=== PATIENT | female | born 1985 | race American Indian/Alaskan Native ===

== ENCOUNTER 2017-12-16 22:13 | Inpatient (IN) ==
[2017-12-20 17:53] VITALS: BP 137/84
== END 2017-12-20 22:31 | disposition home or self-care (01) | DRG 682 ==
LOC: SUATTDRO 23:29 → INTOOBSV 23:29 → N.CC 23:29 → N.5E 12-17 14:44
PROVIDERS: ADMIT Emergency Medicine; ATTEND Internal Medicine

== ENCOUNTER 2021-03-23 17:45 | Observation (INO) ==
[2021-03-23 21:16] LABS: Basophils % 0.4 % (0.0-0.8); Eosinophils # 0.3 10*3/uL (0.0-0.87); Eosinophils % 3.7 % (0.00-10.9); Hematocrit 21.3 VOL% (35.7-47.0); Immature Granulocytes % 0.7 %; Immature Granulocytes Absolute 0.05 #; Lymphocytes # 1.8 10*3/uL (1.4-4.0); Lymphocytes % 25.3 % (21.3-54.2); Mean Corpuscular HGB Conc 32.9 GM/DL (32-36); Mean Corpuscular Volume 96.8 FL (87-102); Mean Platelet Volume 9.3 FL (9.6-12.0); Neutrophils % 61.9 % (38.7-73.9); Platelet Count 195 T/CUMM (130-400); Red Cell Distribution Width 13.9 % (9.3-17.3)
[2021-03-23 21:33] LABS: Alanine Aminotransferase 31 U/L (13-56); Albumin 3.7 G/DL (3.4-5.0); Alkaline Phosphatase 70 U/L (45-117); Aspartate Amino Transferase 17 U/L (0-37); Bilirubin,Total < 0.39 MG/DL (0.20-1.00); Blood Urea Nitrogen 76 MG/DL (7-18); Calcium 8.5 MG/DL (8.5-10.1); Carbon Dioxide 24 MMOL/L (21-32); Estimated Glom Filtration Rate 4 ML/MIN; Glucose 90 MG/DL (74-106); Osmolality,Calculated 301.4 MOS/KG (273-304); Potassium 4.7 MMOL/L (3.5-5.1); Sodium 140 MMOL/L (136-145); Total Protein 7.3 G/DL (6.4-8.2)
[2021-03-23 21:36] LABS: PT Patient Result 10.9 SECS (10.5-12.0); Partial Thromboplastin Time 27.8 SECS (23.8-32.1)
[2021-03-23] MEDS ORDERED: SODIUM CHLORIDE 0.9% 1,000 ML IV PRN (22:29)
[2021-03-23] MEDS ORDERED: ZALEPLON 5 MG CAPSULE PO PRN (22:31)
[2021-03-23] MEDS ORDERED: NICOTINE 21 MG/24 HR PATCH TRANSDERM PRN (22:31)
[2021-03-23] MEDS ORDERED: ONDANSETRON 4 MG/2 ML VIAL IV PRN (22:31)
[2021-03-23] MEDS ORDERED: GLUCAGON 1 MG VIAL IM PRN ×2 (22:31→22:47)
[2021-03-23] MEDS ORDERED: ACETAMINOPHEN 325 MG TABLET PO PRN (22:31)
[2021-03-23] MEDS ORDERED: hydrALAZINE 20 MG/1 ML VIAL IV PRN (22:31)
[2021-03-23] MEDS ORDERED: DEXTROSE 50% 25 GM/50 ML SYRINGE IV PRN (22:31)
[2021-03-23] MEDS ORDERED: DOCUSATE SODIUM 100 MG CAPSULE PO PRN (22:31)
[2021-03-23] MEDS ORDERED: guaiFENesin/DM ER 600-30 MG TABLET PO PRN (22:31)
[2021-03-23] MEDS ORDERED: diphenhydrAMINE CAP 25 MG CAPSULE PO PRN (22:31)
[2021-03-23] MEDS ORDERED: DEXTROSE 50% 25 GM/50 ML VIAL IV PRN (22:47)
[2021-03-23] MEDS ORDERED: amLODIPine 5 MG TABLET PO STA (22:48)
[2021-03-23] MEDS: INSULIN GLARGINE 100 UNIT/ML SUBCUT SCH (23:26)
[2021-03-24 06:08] LABS: Basophils % 0.6 % (0.0-0.8); Eosinophils # 0.3 10*3/uL (0.0-0.87); Eosinophils % 4.1 % (0.00-10.9); Hematocrit 24.8 VOL% (35.7-47.0); Hemoglobin 8.1 GM/DL (12.0-16.0); Immature Granulocytes % 0.4 %; Immature Granulocytes Absolute 0.03 #; Lymphocytes # 1.6 10*3/uL (1.4-4.0); Lymphocytes % 22.9 % (21.3-54.2); Mean Corpuscular HGB Conc 32.7 GM/DL (32-36); Mean Platelet Volume 9.3 FL (9.6-12.0); Monocytes % 7.5 % (1.7-12.7); Neutrophils % 64.5 % (38.7-73.9); Platelet Count 164 T/CUMM (130-400); Red Blood Count 2.61 MC/CUMM (3.8-5.5); Red Cell Distribution Width 14.1 % (9.3-17.3); White Blood Count 6.8 T/CUMM (4-12)
[2021-03-24] MEDS: INSULIN LISPRO 100 UNIT/ML SUBCUT SCH ×4 (08:02→22:02)
[2021-03-24] MEDS: PANTOPRAZOLE 40 MG TABLET PO SCH (08:55)
[2021-03-24] MEDS: amLODIPine 10 MG TABLET PO SCH (08:56)
[2021-03-24] MEDS ORDERED: hydrALAZINE 25 MG TABLET PO SCH (09:00)
[2021-03-24 09:54] LABS: Basophils % 0.5 % (0.0-0.8); Eosinophils # 0.3 10*3/uL (0.0-0.87); Eosinophils % 4.4 % (0.00-10.9); Hemoglobin 7.9 GM/DL (12.0-16.0); Immature Granulocytes % 0.8 %; Immature Granulocytes Absolute 0.05 #; Lymphocytes # 1.3 10*3/uL (1.4-4.0); Lymphocytes % 19.9 % (21.3-54.2); Mean Corpuscular HGB Conc 32.9 GM/DL (32-36); Mean Corpuscular Volume 93.8 FL (87-102); Mean Platelet Volume 9.4 FL (9.6-12.0); Monocytes % 6.1 % (1.7-12.7); Neutrophils % 68.3 % (38.7-73.9); Platelet Count 172 T/CUMM (130-400); Red Blood Count 2.56 MC/CUMM (3.8-5.5); Red Cell Distribution Width 14.2 % (9.3-17.3); White Blood Count 6.5 T/CUMM (4-12)
[2021-03-24] MEDS ORDERED: SODIUM CHLORIDE 0.9% 1,000 ML IV PRN (10:15)
[2021-03-24 10:18] LABS: % Iron Saturation 64.2 % (18-50); Ferritin 1040.3 ng/mL (8-252)
[2021-03-24] MEDS ORDERED: FUROSEMIDE 20 MG/2 ML VIAL IV ONE (10:28)
[2021-03-24] MEDS: FERROUS SULFATE 325 MG TABLET PO SCH (22:10)
[2021-03-24] MEDS: INSULIN GLARGINE 100 UNIT/ML SUBCUT SCH (22:10)
[2021-03-25 09:03] LABS: Basophils % 0.5 % (0.0-0.8); Eosinophils # 0.3 10*3/uL (0.0-0.87); Eosinophils % 4.1 % (0.00-10.9); Hematocrit 28.3 VOL% (35.7-47.0); Hemoglobin 9.2 GM/DL (12.0-16.0); Immature Granulocytes % 1.1 %; Immature Granulocytes Absolute 0.07 #; Lymphocytes # 1.3 10*3/uL (1.4-4.0); Lymphocytes % 19.3 % (21.3-54.2); Mean Corpuscular HGB Conc 32.5 GM/DL (32-36); Mean Platelet Volume 9.5 FL (9.6-12.0); Monocytes % 6.8 % (1.7-12.7); Neutrophils % 68.2 % (38.7-73.9); Platelet Count 167 T/CUMM (130-400); Red Blood Count 3.01 MC/CUMM (3.8-5.5); Red Cell Distribution Width 15.2 % (9.3-17.3); White Blood Count 6.6 T/CUMM (4-12)
[2021-03-25] MEDS: FERROUS SULFATE 325 MG TABLET PO SCH (09:12)
[2021-03-25] MEDS: amLODIPine 10 MG TABLET PO SCH (09:12)
[2021-03-25] MEDS: PANTOPRAZOLE 40 MG TABLET PO SCH (09:12)
[2021-03-25] MEDS: INSULIN LISPRO 100 UNIT/ML SUBCUT SCH ×2 (09:14→16:58)
[2021-03-25 09:38] LABS: Calcium 8.4 MG/DL (8.5-10.1)
[2021-03-25 17:01] VITALS: BP 141/72
== END 2021-03-25 16:45 | disposition home or self-care (01) ==
LOC: N.EDINP 17:45 → N.ED 17:45 → N.EDINP 23:40 → N.5E 03-24 00:30
PROVIDERS: ADMIT Internal Medicine; ATTEND Internal Medicine

== ENCOUNTER 2021-05-12 00:54 | Inpatient (IN) ==
[2021-05-12] MEDS ORDERED: GLUCAGON 1 MG VIAL IM PRN (04:50)
[2021-05-12] MEDS ORDERED: ONDANSETRON 4 MG/2 ML VIAL IV PRN (04:51)
[2021-05-12] MEDS ORDERED: hydrALAZINE 20 MG/1 ML VIAL IV PRN (04:51)
[2021-05-12] MEDS ORDERED: SODIUM CHLORIDE 0.9% 1,000 ML IV SCH (05:00)
[2021-05-12] MEDS ORDERED: DEXTROSE 10% 250 ML BAG IV PRN (05:00)
[2021-05-12] MEDS: cefTRIAXone 1,000 MG in SODIUM CHLORIDE 0.9% 100 ML IV SCH (06:55)
[2021-05-12 06:56] LABS: Basophils % 0.2 % (0.0-0.8); Eosinophils % 0.3 % (0.00-10.9); Hematocrit 19.4 VOL% (35.7-47.0); Hemoglobin 6.3 GM/DL (12.0-16.0); Immature Granulocytes % 0.4 %; Immature Granulocytes Absolute 0.05 #; Lymphocytes # 0.5 10*3/uL (1.4-4.0); Lymphocytes % 4.3 % (21.3-54.2); Mean Corpuscular HGB Conc 32.5 GM/DL (32-36); Mean Corpuscular Volume 95.1 FL (87-102); Mean Platelet Volume 9.6 FL (9.6-12.0); Monocytes % 4.6 % (1.7-12.7); Neutrophils % 90.2 % (38.7-73.9); Platelet Count 185 T/CUMM (130-400); Red Blood Count 2.04 MC/CUMM (3.8-5.5); Red Cell Distribution Width 15.4 % (9.3-17.3); White Blood Count 11.7 T/CUMM (4-12)
[2021-05-12 07:17] LABS: Albumin 2.9 G/DL (3.4-5.0); Bilirubin,Total 1.6 MG/DL (0.20-1.00); Calcium 8.1 MG/DL (8.5-10.1); Osmolality,Calculated 291.1 MOS/KG (273-304); Potassium 4.7 MMOL/L (3.5-5.1); Total Protein 6.3 G/DL (6.4-8.2)
[2021-05-12 07:20] LABS: Anisocytosis 2+; Band Neutrophils 1 % (0-10); Hypochromia 1+; Lymphocytes 5 % (20-55); Platelet Estimate Normal; Segmented Neutrophils 91 % (50-85); Total Cells Counted 100
[2021-05-12 07:24] LABS: Risk Ratio 2.94; Thyroid Stimulating Hormone 2.79 uIU/ml (0.358-3.74); VLDL Cholesterol 26.4 MG/DL
[2021-05-12] MEDS: ALBUTEROL 2.5 MG/3 ML NEB RESP TX SCH ×3 (07:29→19:14)
[2021-05-12 08:05] LABS: INR 1.1; PT Patient Result 12.2 SECS (10.5-12.0); Partial Thromboplastin Time 30.9 SECS (23.8-32.1)
[2021-05-12] MEDS ORDERED: SODIUM CHLORIDE 0.9% 1,000 ML IV PRN (08:38)
[2021-05-12] MEDS: AZITHROMYCIN INJ 500 MG in SODIUM CHLORIDE 0.9% 250 ML IV SCH (08:45)
[2021-05-12] MEDS: guaiFENesin/DM ER 600-30 MG TABLET PO SCH ×2 (08:53→21:01)
[2021-05-12] MEDS: PANTOPRAZOLE 40 MG VIAL IV SCH (08:53)
[2021-05-12] MEDS ORDERED: PANTOPRAZOLE 40 MG VIAL IV SCH (09:00)
[2021-05-12] MEDS: ACETAMINOPHEN 325 MG TABLET PO PRN ×3 (10:14→21:01)
[2021-05-12] MEDS ORDERED: ALBUTEROL/IPRATROPIUM 3 ML NEB RESP TX PRN (11:18)
[2021-05-12 12:46] LABS: Ferritin 1143.2 ng/mL (8-252)
[2021-05-12] MEDS ORDERED: EPOETIN ALFA-EPBX 10,000 UNIT/ML VIAL IV PRN (14:15)
[2021-05-12] MEDS: traMADol 50 MG TABLET PO PRN (17:30)
[2021-05-12 18:15] LABS: Hemoglobin 9.1 GM/DL (12.0-16.0)
[2021-05-13] MEDS: ALBUTEROL 2.5 MG/3 ML NEB RESP TX SCH ×4 (00:03→19:42)
[2021-05-13] MEDS: ACETAMINOPHEN 325 MG TABLET PO PRN ×3 (04:37→21:16)
[2021-05-13] MEDS: cefTRIAXone 1,000 MG in SODIUM CHLORIDE 0.9% 100 ML IV SCH (05:31)
[2021-05-13 05:38] LABS: Basophils % 0.2 % (0.0-0.8); Eosinophils % 0.5 % (0.00-10.9); Immature Granulocytes % 0.6 %; Immature Granulocytes Absolute 0.05 #; Lymphocytes # 0.7 10*3/uL (1.4-4.0); Lymphocytes % 8.3 % (21.3-54.2); Mean Corpuscular HGB Conc 33.3 GM/DL (32-36); Mean Corpuscular Volume 91.2 FL (87-102); Mean Platelet Volume 9.9 FL (9.6-12.0); Monocytes % 7.4 % (1.7-12.7); Platelet Count 150 T/CUMM (130-400); Red Blood Count 2.96 MC/CUMM (3.8-5.5); Red Cell Distribution Width 16.6 % (9.3-17.3); White Blood Count 8.6 T/CUMM (4-12)
[2021-05-13] MEDS: AZITHROMYCIN INJ 500 MG in SODIUM CHLORIDE 0.9% 250 ML IV SCH (06:04)
[2021-05-13 06:16] LABS: Calcium 8.3 MG/DL (8.5-10.1); Osmolality,Calculated 276.2 MOS/KG (273-304); Potassium 4.3 MMOL/L (3.5-5.1)
[2021-05-13] MEDS ORDERED: VANCOMYCIN INJ 750 MG in SODIUM CHLORIDE 0.9% 250 ML IV PRN (08:41)
[2021-05-13] MEDS ORDERED: VANCOMYCIN INJ 2,250 MG in SODIUM CHLORIDE 0.9% 500 ML IV ONE (11:00)
[2021-05-13] MEDS: guaiFENesin/DM ER 600-30 MG TABLET PO SCH ×2 (11:25→21:18)
[2021-05-13] MEDS: PANTOPRAZOLE 40 MG VIAL IV SCH (11:25)
[2021-05-13] MEDS: cefTAZidime 500 MG in SODIUM CHLORIDE 0.9% 100 ML IV SCH (12:31)
[2021-05-13] MEDS: CETIRIZINE 10 MG TABLET PO SCH (14:45)
[2021-05-13] MEDS: GABAPENTIN 300 MG CAPSULE PO SCH ×2 (14:45→21:16)
[2021-05-13] MEDS: amLODIPine 10 MG TABLET PO SCH (14:46)
[2021-05-13] MEDS: traMADol 50 MG TABLET PO PRN (22:51)
[2021-05-14] MEDS: ALBUTEROL 2.5 MG/3 ML NEB RESP TX SCH ×4 (02:21→19:10)
[2021-05-14 04:55] LABS: Basophils % 0.1 % (0.0-0.8); Eosinophils # 0.3 10*3/uL (0.0-0.87); Eosinophils % 3.8 % (0.00-10.9); Hematocrit 24.2 VOL% (35.7-47.0); Hemoglobin 7.9 GM/DL (12.0-16.0); Immature Granulocytes % 0.3 %; Immature Granulocytes Absolute 0.02 #; Lymphocytes # 0.9 10*3/uL (1.4-4.0); Lymphocytes % 12.2 % (21.3-54.2); Mean Corpuscular HGB Conc 32.6 GM/DL (32-36); Mean Corpuscular Volume 91.3 FL (87-102); Mean Platelet Volume 9.3 FL (9.6-12.0); Monocytes % 7.2 % (1.7-12.7); Neutrophils % 76.4 % (38.7-73.9); Platelet Count 125 T/CUMM (130-400); Red Blood Count 2.65 MC/CUMM (3.8-5.5); Red Cell Distribution Width 16.1 % (9.3-17.3); White Blood Count 7.1 T/CUMM (4-12)
[2021-05-14 05:21] LABS: Calcium 8.3 MG/DL (8.5-10.1); Osmolality,Calculated 275.5 MOS/KG (273-304); Potassium 4.4 MMOL/L (3.5-5.1)
[2021-05-14] MEDS: CETIRIZINE 10 MG TABLET PO SCH (09:15)
[2021-05-14] MEDS: GABAPENTIN 300 MG CAPSULE PO SCH ×3 (09:15→21:00)
[2021-05-14] MEDS: amLODIPine 10 MG TABLET PO SCH (09:15)
[2021-05-14] MEDS: PANTOPRAZOLE 40 MG VIAL IV SCH (09:16)
[2021-05-14] MEDS: cefTAZidime 500 MG in SODIUM CHLORIDE 0.9% 100 ML IV SCH (09:18)
[2021-05-14] MEDS: guaiFENesin/DM ER 600-30 MG TABLET PO SCH ×2 (10:18→21:00)
[2021-05-14] MEDS: traMADol 50 MG TABLET PO PRN (23:35)
[2021-05-15] MEDS: ALBUTEROL 2.5 MG/3 ML NEB RESP TX SCH ×4 (00:09→19:25)
[2021-05-15 05:25] LABS: Basophils % 0.2 % (0.0-0.8); Eosinophils # 0.2 10*3/uL (0.0-0.87); Eosinophils % 4.2 % (0.00-10.9); Hematocrit 24.4 VOL% (35.7-47.0); Immature Granulocytes % 0.4 %; Immature Granulocytes Absolute 0.02 #; Lymphocytes # 0.9 10*3/uL (1.4-4.0); Lymphocytes % 17.3 % (21.3-54.2); Mean Corpuscular HGB Conc 32.8 GM/DL (32-36); Mean Corpuscular Volume 91.7 FL (87-102); Mean Platelet Volume 9.9 FL (9.6-12.0); Monocytes % 10.4 % (1.7-12.7); Neutrophils % 67.5 % (38.7-73.9); Platelet Count 139 T/CUMM (130-400); Red Blood Count 2.66 MC/CUMM (3.8-5.5); Red Cell Distribution Width 16.2 % (9.3-17.3); White Blood Count 5.2 T/CUMM (4-12)
[2021-05-15 05:57] LABS: Potassium 4.3 MMOL/L (3.5-5.1)
[2021-05-15] MEDS ORDERED: AZITHROMYCIN 250 MG TABLET PO SCH (06:30)
[2021-05-15] MEDS: GABAPENTIN 300 MG CAPSULE PO SCH ×3 (09:11→22:15)
[2021-05-15] MEDS: guaiFENesin/DM ER 600-30 MG TABLET PO SCH ×2 (09:11→22:15)
[2021-05-15] MEDS: cefTAZidime 500 MG in SODIUM CHLORIDE 0.9% 100 ML IV SCH (09:12)
[2021-05-15] MEDS: CETIRIZINE 10 MG TABLET PO SCH (09:12)
[2021-05-15] MEDS: amLODIPine 10 MG TABLET PO SCH (09:12)
[2021-05-15] MEDS: PANTOPRAZOLE 40 MG VIAL IV SCH (09:13)
[2021-05-15] MEDS ORDERED: ceFAZolin 2,000 MG/50 ML DUPLEX IV SCH (17:00)
[2021-05-15] MEDS: traMADol 50 MG TABLET PO PRN (22:15)
[2021-05-16] MEDS: ALBUTEROL 2.5 MG/3 ML NEB RESP TX SCH ×4 (01:11→20:22)
[2021-05-16 05:37] LABS: Basophils % 0.4 % (0.0-0.8); Eosinophils # 0.3 10*3/uL (0.0-0.87); Eosinophils % 5.7 % (0.00-10.9); Hematocrit 24.3 VOL% (35.7-47.0); Hemoglobin 7.9 GM/DL (12.0-16.0); Immature Granulocytes % 2.2 %; Immature Granulocytes Absolute 0.11 #; Lymphocytes # 1.3 10*3/uL (1.4-4.0); Mean Corpuscular HGB Conc 32.5 GM/DL (32-36); Mean Corpuscular Volume 92.4 FL (87-102); Mean Platelet Volume 9.6 FL (9.6-12.0); Neutrophils % 55.7 % (38.7-73.9); Platelet Count 152 T/CUMM (130-400); Red Blood Count 2.63 MC/CUMM (3.8-5.5); Red Cell Distribution Width 15.9 % (9.3-17.3); White Blood Count 5.1 T/CUMM (4-12)
[2021-05-16 05:56] LABS: Calcium 8.1 MG/DL (8.5-10.1); Osmolality,Calculated 278.4 MOS/KG (273-304); Potassium 4.2 MMOL/L (3.5-5.1)
[2021-05-16] MEDS: CETIRIZINE 10 MG TABLET PO SCH (13:05)
[2021-05-16] MEDS: PANTOPRAZOLE 40 MG VIAL IV SCH (13:05)
[2021-05-16] MEDS: GABAPENTIN 300 MG CAPSULE PO SCH ×3 (13:05→20:50)
[2021-05-16] MEDS: guaiFENesin/DM ER 600-30 MG TABLET PO SCH ×2 (13:05→20:50)
[2021-05-16] MEDS: amLODIPine 10 MG TABLET PO SCH (13:05)
[2021-05-17] MEDS: traMADol 50 MG TABLET PO PRN (00:18)
[2021-05-17] MEDS: ALBUTEROL 2.5 MG/3 ML NEB RESP TX SCH ×3 (01:25→13:44)
[2021-05-17 05:24] LABS: Basophils % 0.4 % (0.0-0.8); Eosinophils # 0.3 10*3/uL (0.0-0.87); Eosinophils % 5.7 % (0.00-10.9); Hematocrit 26.9 VOL% (35.7-47.0); Hemoglobin 8.7 GM/DL (12.0-16.0); Immature Granulocytes % 3.5 %; Immature Granulocytes Absolute 0.19 #; Lymphocytes # 1.2 10*3/uL (1.4-4.0); Mean Corpuscular HGB Conc 32.3 GM/DL (32-36); Mean Corpuscular Volume 92.4 FL (87-102); Mean Platelet Volume 9.3 FL (9.6-12.0); Monocytes % 8.9 % (1.7-12.7); Neutrophils % 58.5 % (38.7-73.9); Platelet Count 194 T/CUMM (130-400); Red Blood Count 2.91 MC/CUMM (3.8-5.5); Red Cell Distribution Width 15.5 % (9.3-17.3); White Blood Count 5.4 T/CUMM (4-12)
[2021-05-17] MEDS: CETIRIZINE 10 MG TABLET PO SCH (10:23)
[2021-05-17] MEDS: amLODIPine 10 MG TABLET PO SCH (10:23)
[2021-05-17] MEDS: GABAPENTIN 300 MG CAPSULE PO SCH (10:23)
[2021-05-17] MEDS: guaiFENesin/DM ER 600-30 MG TABLET PO SCH (10:23)
[2021-05-17] MEDS: PANTOPRAZOLE 40 MG VIAL IV SCH (10:24)
[2021-05-17 12:39] VITALS: BP 153/79
== END 2021-05-17 14:54 | disposition home health service (06) | DRG 871 ==
LOC: N.TELES → SUATTDRO 04:50
PROVIDERS: ADMIT Internal Medicine; ATTEND Hospitalist

== ENCOUNTER 2021-06-04 12:32 | Observation (INO) ==
[2021-06-04 18:41] LABS: Basophils % 0.5 % (0.0-0.8); Eosinophils # 0.2 10*3/uL (0.0-0.87); Eosinophils % 2.7 % (0.00-10.9); Hematocrit 22.1 VOL% (35.7-47.0); Hemoglobin 7.5 GM/DL (12.0-16.0); Immature Granulocytes Absolute 0.06 #; Lymphocytes # 1.1 10*3/uL (1.4-4.0); Lymphocytes % 18.1 % (21.3-54.2); Mean Corpuscular HGB Conc 33.9 GM/DL (32-36); Mean Corpuscular Volume 91.3 FL (87-102); Mean Platelet Volume 10.3 FL (9.6-12.0); Monocytes % 7.4 % (1.7-12.7); Neutrophils % 70.3 % (38.7-73.9); Platelet Count 173 T/CUMM (130-400); Red Blood Count 2.42 MC/CUMM (3.8-5.5); Red Cell Distribution Width 14.3 % (9.3-17.3); White Blood Count 5.9 T/CUMM (4-12)
[2021-06-04 19:03] LABS: Alanine Aminotransferase < 9 U/L (13-56); Albumin 3.5 G/DL (3.4-5.0); Alkaline Phosphatase 53 U/L (45-117); Aspartate Amino Transferase 20 U/L (0-37); Blood Urea Nitrogen 68 MG/DL (7-18); Calcium 8.5 MG/DL (8.5-10.1); Carbon Dioxide 24 MMOL/L (21-32); Estimated Glom Filtration Rate 4 ML/MIN; Glucose 71 MG/DL (74-106); Osmolality,Calculated 279.7 MOS/KG (273-304); Potassium 4.5 MMOL/L (3.5-5.1); Sodium 131 MMOL/L (136-145)
[2021-06-04 20:12] LABS: Bilirubin,Urine Negative (Negative); Blood, Urine Negative (Negative); Glucose,Urine (UA) 50 mg/dL (Negative); Hyaline Casts,Urine 3 /LPF (0-3); Ketones,Urine Negative (Negative); Nitrite,Urine Negative (Negative); Protein,Urine >=500 MG/DL; RBC,Urine 1 /HPF (0-4); Squamous Epithelial Cell,Urine Occasional /HPF (0-10); Urine Appearance Slightly Hazy (Clear); Urine Color Yellow (Yellow); Urine Specific Gravity 1.008 (1.001-1.035); Urine Urobilinogen < 2.0 EU/DL (<2.0)
[2021-06-04] MEDS ORDERED: ONDANSETRON 4 MG/2 ML VIAL IV PRN (21:39)
[2021-06-04] MEDS ORDERED: GLUCAGON 1 MG VIAL IM PRN (21:39)
[2021-06-04] MEDS ORDERED: ACETAMINOPHEN 325 MG TABLET PO PRN (21:39)
[2021-06-04] MEDS ORDERED: hydrALAZINE 20 MG/1 ML VIAL IV PRN (21:39)
[2021-06-04] MEDS ORDERED: ceFAZolin 2,000 MG/50 ML DUPLEX IV ONE (21:46)
[2021-06-04] MEDS ORDERED: DEXTROSE 10% 250 ML BAG IV PRN (21:46)
[2021-06-04] MEDS ORDERED: APIXABAN 2.5 MG TABLET PO SCH (22:00)
[2021-06-04 23:18] LABS: INR 1.1; PT Patient Result 11.7 SECS (10.5-12.0); Partial Thromboplastin Time 31.3 SECS (23.8-32.1)
[2021-06-05 04:04] LABS: Basophils # 0.1 10*3/uL (0.0-0.2); Basophils % 0.8 % (0.0-0.8); Eosinophils # 0.2 10*3/uL (0.0-0.87); Eosinophils % 3.4 % (0.00-10.9); Hemoglobin 7.1 GM/DL (12.0-16.0); Immature Granulocytes Absolute 0.06 #; Lymphocytes # 1.1 10*3/uL (1.4-4.0); Lymphocytes % 18.4 % (21.3-54.2); Mean Corpuscular HGB Conc 33.8 GM/DL (32-36); Mean Corpuscular Volume 91.3 FL (87-102); Mean Platelet Volume 10.2 FL (9.6-12.0); Monocytes % 8.6 % (1.7-12.7); Neutrophils % 67.8 % (38.7-73.9); Platelet Count 164 T/CUMM (130-400); Red Cell Distribution Width 14.4 % (9.3-17.3); White Blood Count 6.1 T/CUMM (4-12)
[2021-06-05 04:20] LABS: Calcium 8.4 MG/DL (8.5-10.1); INR 1.1; Osmolality,Calculated 279.7 MOS/KG (273-304); PT Patient Result 11.8 SECS (10.5-12.0); Potassium 4.2 MMOL/L (3.5-5.1)
[2021-06-05] MEDS: APIXABAN 5 MG TABLET PO SCH ×2 (09:20→20:57)
[2021-06-05] MEDS: PANTOPRAZOLE 40 MG TABLET PO SCH (09:20)
[2021-06-05] MEDS: GABAPENTIN 300 MG CAPSULE PO SCH ×3 (09:20→20:57)
[2021-06-05] MEDS: amLODIPine 10 MG TABLET PO SCH (09:20)
[2021-06-05] MEDS ORDERED: LABETALOL 20 MG/4 ML SYRINGE IV ONE ×2 (10:50→10:59)
[2021-06-05 12:59] LABS: INR 1.1; Partial Thromboplastin Time 34.5 SECS (23.8-32.1)
[2021-06-06 08:11] LABS: Basophils % 0.7 % (0.0-0.8); Eosinophils # 0.2 10*3/uL (0.0-0.87); Eosinophils % 3.5 % (0.00-10.9); Hematocrit 24.7 VOL% (35.7-47.0); Hemoglobin 8.1 GM/DL (12.0-16.0); Immature Granulocytes Absolute 0.06 #; Lymphocytes # 0.9 10*3/uL (1.4-4.0); Lymphocytes % 14.7 % (21.3-54.2); Mean Corpuscular HGB Conc 32.8 GM/DL (32-36); Mean Corpuscular Volume 90.5 FL (87-102); Mean Platelet Volume 9.3 FL (9.6-12.0); Monocytes % 8.3 % (1.7-12.7); Neutrophils % 71.8 % (38.7-73.9); Platelet Count 161 T/CUMM (130-400); Red Blood Count 2.73 MC/CUMM (3.8-5.5); Red Cell Distribution Width 15.3 % (9.3-17.3)
[2021-06-06 08:39] LABS: Calcium 8.6 MG/DL (8.5-10.1); Osmolality,Calculated 276.4 MOS/KG (273-304); Potassium 4.4 MMOL/L (3.5-5.1)
[2021-06-06] MEDS: APIXABAN 5 MG TABLET PO SCH (09:06)
[2021-06-06] MEDS: GABAPENTIN 300 MG CAPSULE PO SCH (09:06)
[2021-06-06] MEDS: amLODIPine 10 MG TABLET PO SCH (09:06)
[2021-06-06] MEDS: PANTOPRAZOLE 40 MG TABLET PO SCH (09:06)
[2021-06-06 09:34] VITALS: BP 191/83
[2021-06-06 11:41] LABS: Protein C Activity Plasma 78 % (70 - 150); Protein S Ag (Free) 110 % (50 - 160)
[2021-06-06] MEDS ORDERED: SEVELAMER CARBONATE 800 MG TABLET PO SCH (12:00)
[2021-06-06 18:56] LABS: Phospholipid Ab IgM, S < 9.4 MPL
[2021-06-07 11:26] LABS: Protein S Activity Plasma 109 % (50 - 160)
[2021-06-08 16:41] LABS: Protein C, Total Antigen 77 % (63-153)
== END 2021-06-06 10:31 | disposition home or self-care (01) ==
LOC: N.ED 12:32 → N.EDINP 12:32 → SUATTDRO 21:40 → N.TELES 06-05 19:59
PROVIDERS: ADMIT Internal Medicine; ATTEND Internal Medicine

== ENCOUNTER 2021-12-27 17:18 | Inpatient (IN) ==
[2021-12-27 19:09] LABS: Basophils % 0.7 % (0.0-0.8); Eosinophils # 0.6 10*3/uL (0.0-0.87); Eosinophils % 9.8 % (0.00-10.9); Hematocrit 20.2 VOL% (35.7-47.0); Hemoglobin 6.8 GM/DL (12.0-16.0); Immature Granulocytes % 0.5 %; Immature Granulocytes Absolute 0.03 #; Lymphocytes # 0.8 10*3/uL (1.4-4.0); Mean Corpuscular HGB Conc 33.7 GM/DL (32-36); Mean Corpuscular Volume 88.2 FL (87-102); Monocytes # 0.3 10*3/uL (0.11-0.8); Monocytes % 5.1 % (1.7-12.7); Neutrophils % 69.9 % (38.7-73.9); Platelet Count 173 T/CUMM (130-400); Red Blood Count 2.29 MC/CUMM (3.8-5.5); Red Cell Distribution Width 15.3 % (9.3-17.3); White Blood Count 5.7 T/CUMM (4-12)
[2021-12-27 19:18] LABS: INR 1.1; PT Patient Result 11.7 SECS (10.1-12.1)
[2021-12-27 19:33] LABS: Bilirubin,Total 0.9 MG/DL (0.20-1.00); Calcium 8.6 MG/DL (8.5-10.1); Osmolality,Calculated 281.5 MOS/KG (273-304); Potassium 3.6 MMOL/L (3.5-5.1); Total Protein 6.6 G/DL (6.4-8.2)
[2021-12-27] MEDS ORDERED: oxyCODONE/ACETAMINOPHEN 5-325 MG TABLET PO STA (19:59)
[2021-12-27] MEDS ORDERED: ACETAMINOPHEN 325 MG TABLET PO PRN (20:22)
[2021-12-27] MEDS ORDERED: ALBUTEROL 2.5 MG/3 ML NEB RESP TX PRN (20:22)
[2021-12-27] MEDS ORDERED: hydrALAZINE 20 MG/1 ML VIAL IV PRN (20:22)
[2021-12-27] MEDS ORDERED: ONDANSETRON 4 MG/2 ML VIAL IV PRN (20:22)
[2021-12-27] MEDS ORDERED: DEXTROSE 10% 250 ML BAG IV PRN (20:22)
[2021-12-27] MEDS ORDERED: GLUCAGON 1 MG VIAL IM PRN (20:22)
[2021-12-27] MEDS ORDERED: MORPHINE 2 MG/1 ML SYRINGE IV PRN (20:22)
[2021-12-27] MEDS ORDERED: SODIUM CHLORIDE 0.9% 1,000 ML IV PRN (20:30)
[2021-12-27] MEDS: cefTRIAXone 1,000 MG in SODIUM CHLORIDE 0.9% 100 ML IV SCH (22:15)
[2021-12-27] MEDS: AZITHROMYCIN INJ 500 MG in SODIUM CHLORIDE 0.9% 250 ML IV SCH (22:55)
[2021-12-28] MEDS: oxyCODONE/ACETAMINOPHEN 5-325 MG TABLET PO PRN ×2 (03:12→20:19)
[2021-12-28 05:03] LABS: Basophils % 0.4 % (0.0-0.8); Eosinophils # 0.5 10*3/uL (0.0-0.87); Eosinophils % 9.1 % (0.00-10.9); Hematocrit 18.6 VOL% (35.7-47.0); Immature Granulocytes % 0.5 %; Immature Granulocytes Absolute 0.03 #; Lymphocytes # 0.9 10*3/uL (1.4-4.0); Lymphocytes % 15.5 % (21.3-54.2); Mean Corpuscular HGB Conc 33.3 GM/DL (32-36); Mean Corpuscular Volume 88.6 FL (87-102); Mean Platelet Volume 9.8 FL (9.6-12.0); Monocytes # 0.3 10*3/uL (0.11-0.8); Monocytes % 5.5 % (1.7-12.7); Platelet Count 154 T/CUMM (130-400); Red Cell Distribution Width 15.1 % (9.3-17.3); White Blood Count 5.6 T/CUMM (4-12)
[2021-12-28 05:08] LABS: Hemoglobin 6.2 GM/DL (12.0-16.0)
[2021-12-28 05:27] LABS: Calcium 8.4 MG/DL (8.5-10.1); Osmolality,Calculated 282.5 MOS/KG (273-304); Potassium 3.6 MMOL/L (3.5-5.1)
[2021-12-28] MEDS: BUDESONIDE/FORMOTEROL 160-4.5 INHALER 6 GM INH SCH ×2 (08:32→20:19)
[2021-12-28] MEDS: amLODIPine 10 MG TABLET PO SCH (08:32)
[2021-12-28] MEDS: PANTOPRAZOLE 40 MG TABLET PO SCH (08:32)
[2021-12-28] MEDS: cefTRIAXone 1,000 MG in SODIUM CHLORIDE 0.9% 100 ML IV SCH (22:01)
[2021-12-28] MEDS: AZITHROMYCIN INJ 500 MG in SODIUM CHLORIDE 0.9% 250 ML IV SCH (22:01)
[2021-12-29] MEDS: oxyCODONE/ACETAMINOPHEN 5-325 MG TABLET PO PRN ×3 (00:20→08:22)
[2021-12-29] MEDS: ONDANSETRON ODT 4 MG TABLET PO PRN ×2 (04:34→08:22)
[2021-12-29 05:47] LABS: Basophils % 0.6 % (0.0-0.8); Eosinophils # 0.4 10*3/uL (0.0-0.87); Hematocrit 21.8 VOL% (35.7-47.0); Hemoglobin 7.2 GM/DL (12.0-16.0); Immature Granulocytes % 0.4 %; Immature Granulocytes Absolute 0.02 #; Lymphocytes # 0.7 10*3/uL (1.4-4.0); Lymphocytes % 15.2 % (21.3-54.2); Mean Corpuscular Volume 89.7 FL (87-102); Mean Platelet Volume 9.6 FL (9.6-12.0); Monocytes # 0.4 10*3/uL (0.11-0.8); Monocytes % 7.8 % (1.7-12.7); Platelet Count 151 T/CUMM (130-400); Red Blood Count 2.43 MC/CUMM (3.8-5.5); Red Cell Distribution Width 14.6 % (9.3-17.3); White Blood Count 4.9 T/CUMM (4-12)
[2021-12-29 06:16] LABS: Bilirubin,Total 0.6 MG/DL (0.20-1.00); Calcium 8.7 MG/DL (8.5-10.1); Phosphorous 6.6 MG/DL (2.5-4.9); Potassium 3.5 MMOL/L (3.5-5.1); Total Protein 6.8 G/DL (6.4-8.2)
[2021-12-29 07:38] VITALS: BP 184/83
[2021-12-29] MEDS: amLODIPine 10 MG TABLET PO SCH (08:22)
[2021-12-29] MEDS: PANTOPRAZOLE 40 MG TABLET PO SCH (08:22)
[2021-12-29] MEDS: BUDESONIDE/FORMOTEROL 160-4.5 INHALER 6 GM INH SCH (08:24)
== END 2021-12-29 12:08 | disposition home or self-care (01) | DRG 682 ==
LOC: N.ED 17:18 → N.EDINP 17:18 → N.3E 12-28 00:27 → SUATTDRO 12-28 08:15
PROVIDERS: ADMIT Internal Medicine; ATTEND Internal Medicine

== ENCOUNTER 2022-04-05 14:39 | Inpatient (IN) ==
[2022-04-05] MEDS ORDERED: HEPARIN LOCK FLUSH 500 UNIT/5 ML SYRINGE IV ONE ×2 (17:14→17:43)
[2022-04-05 17:17] LABS: Basophils % 0.8 % (0.0-0.8); Eosinophils # 0.2 10*3/uL (0.0-0.87); Eosinophils % 3.9 % (0.00-10.9); Hematocrit 23.2 VOL% (35.7-47.0); Hemoglobin 7.5 GM/DL (12.0-16.0); Immature Granulocytes % 0.6 %; Immature Granulocytes Absolute 0.03 #; Lymphocytes # 1.1 10*3/uL (1.4-4.0); Mean Corpuscular HGB Conc 32.3 GM/DL (32-36); Mean Corpuscular Volume 94.3 FL (87-102); Mean Platelet Volume 9.1 FL (9.6-12.0); Monocytes # 0.5 10*3/uL (0.11-0.8); Monocytes % 9.8 % (1.7-12.7); Neutrophils % 61.9 % (38.7-73.9); Platelet Count 236 T/CUMM (130-400); Red Blood Count 2.46 MC/CUMM (3.8-5.5); Red Cell Distribution Width 16.4 % (9.3-17.3); White Blood Count 4.9 T/CUMM (4-12)
[2022-04-05] MEDS ORDERED: fentaNYL 100 MCG/2 ML VIAL IV STA (17:35)
[2022-04-05 17:41] LABS: Alanine Aminotransferase < 6 U/L (13-56); Alkaline Phosphatase 100 U/L (45-117); Aspartate Amino Transferase 10 U/L (0-37); Blood Urea Nitrogen 23 MG/DL (7-18); Calcium 7.6 MG/DL (8.5-10.1); Carbon Dioxide 32 MMOL/L (21-32); Chloride 102 MMOL/L (98-107); Glucose 98 MG/DL (74-106); Osmolality,Calculated 284.3 MOS/KG (273-304); Potassium 3.3 MMOL/L (3.5-5.1); Sodium 141 MMOL/L (136-145)
[2022-04-05] MEDS: ONDANSETRON 4 MG/2 ML VIAL IV PRN (17:45)
[2022-04-05 18:11] LABS: INR 1.1; PT Patient Result 12.4 SECS (10.1-12.1); Partial Thromboplastin Time 34.8 SECS (23.7-32.9)
[2022-04-05] MEDS ORDERED: GLUCAGON 1 MG VIAL IM PRN (18:36)
[2022-04-05] MEDS ORDERED: DEXTROSE 10% 250 ML BAG IV PRN (18:36)
[2022-04-05] MEDS: HEPARIN DRIP 25,000 UNITS/500 ML PREMIX IV SCH (18:40)
[2022-04-05] MEDS ORDERED: ACETAMINOPHEN 325 MG TABLET PO PRN (18:50)
[2022-04-05] MEDS ORDERED: ZALEPLON 5 MG CAPSULE PO PRN (18:50)
[2022-04-05] MEDS: hydrALAZINE 20 MG/1 ML VIAL IV PRN (19:28)
[2022-04-05] MEDS: MORPHINE 2 MG/1 ML SYRINGE IV PRN (20:57)
[2022-04-06] MEDS: MORPHINE 2 MG/1 ML SYRINGE IV PRN (01:00)
[2022-04-06 02:41] LABS: Basophils # 0.1 10*3/uL (0.0-0.2); Basophils % 1.2 % (0.0-0.8); Eosinophils # 0.2 10*3/uL (0.0-0.87); Eosinophils % 4.4 % (0.00-10.9); Hematocrit 21.8 VOL% (35.7-47.0); Hemoglobin 7.1 GM/DL (12.0-16.0); Immature Granulocytes % 0.5 %; Immature Granulocytes Absolute 0.02 #; Lymphocytes % 23.5 % (21.3-54.2); Mean Corpuscular HGB Conc 32.6 GM/DL (32-36); Mean Corpuscular Volume 93.6 FL (87-102); Mean Platelet Volume 9.5 FL (9.6-12.0); Monocytes # 0.4 10*3/uL (0.11-0.8); Monocytes % 8.5 % (1.7-12.7); Neutrophils % 61.9 % (38.7-73.9); Platelet Count 219 T/CUMM (130-400); Red Blood Count 2.33 MC/CUMM (3.8-5.5); Red Cell Distribution Width 16.3 % (9.3-17.3); White Blood Count 4.1 T/CUMM (4-12)
[2022-04-06 03:01] LABS: Calcium 7.4 MG/DL (8.5-10.1); Osmolality,Calculated 278.7 MOS/KG (273-304); Potassium 3.2 MMOL/L (3.5-5.1)
[2022-04-06] MEDS: HYDROmorphone 1 MG/1 ML SYRINGE IV PRN ×5 (03:48→23:22)
[2022-04-06] MEDS: hydrALAZINE 20 MG/1 ML VIAL IV PRN ×2 (04:43→23:22)
[2022-04-06] MEDS ORDERED: SODIUM CHLORIDE 0.9% 1,000 ML IV PRN ×2 (08:03→10:39)
[2022-04-06] MEDS: INSULIN LISPRO 100 UNIT/ML SUBCUT SCH ×4 (08:40→22:33)
[2022-04-06] MEDS: PANTOPRAZOLE 40 MG TABLET PO SCH (09:00)
[2022-04-06] MEDS: LOSARTAN 50 MG TABLET PO SCH (11:42)
[2022-04-06] MEDS: carvediloL 25 MG TABLET PO SCH ×2 (11:42→22:11)
[2022-04-06] MEDS: amLODIPine 10 MG TABLET PO SCH (11:43)
[2022-04-06] MEDS: BRIMONIDINE 0.15% OPH SOLN 1 DROP/DROPS BOTTLE LEFT EYE SCH ×3 (14:32→22:10)
[2022-04-06] MEDS: DORZOLAMIDE/TIMOLOL OPH SOLN 10 ML BOTTLE LEFT EYE SCH ×2 (14:32→22:11)
[2022-04-06] MEDS: BUDESONIDE/FORMOTEROL 160-4.5 INHALER 6 GM INH SCH ×2 (14:32→22:10)
[2022-04-06] MEDS: OFLOXACIN 0.3% OPH SOLN 5 ML BOTTLE LEFT EYE SCH ×3 (14:33→22:11)
[2022-04-06] MEDS: prednisoLONE ACETATE 1% OPH SUSP 5 ML BOTTLE LEFT EYE SCH ×3 (14:33→22:11)
[2022-04-06 15:23] LABS: Hematocrit 30.3 VOL% (35.7-47.0); Hemoglobin 10.1 GM/DL (12.0-16.0)
[2022-04-06] MEDS: WARFARIN 5 MG TABLET PO SCH (18:03)
[2022-04-06] MEDS: HEPARIN DRIP 25,000 UNITS/500 ML PREMIX IV SCH (18:04)
[2022-04-06] MEDS ORDERED: HEPARIN 10,000 UNIT/10 ML VIAL IV SCH (19:15)
[2022-04-07] MEDS: HYDROmorphone 1 MG/1 ML SYRINGE IV PRN ×5 (04:14→23:28)
[2022-04-07 05:10] LABS: Basophils # 0.1 10*3/uL (0.0-0.2); Basophils % 0.9 % (0.0-0.8); Eosinophils # 0.2 10*3/uL (0.0-0.87); Eosinophils % 3.3 % (0.00-10.9); Hematocrit 30.5 VOL% (35.7-47.0); Hemoglobin 10.1 GM/DL (12.0-16.0); Immature Granulocytes % 0.3 %; Immature Granulocytes Absolute 0.02 #; Lymphocytes # 0.9 10*3/uL (1.4-4.0); Lymphocytes % 14.6 % (21.3-54.2); Mean Corpuscular HGB Conc 33.1 GM/DL (32-36); Mean Corpuscular Volume 93.6 FL (87-102); Mean Platelet Volume 9.4 FL (9.6-12.0); Monocytes # 0.5 10*3/uL (0.11-0.8); Monocytes % 8.6 % (1.7-12.7); Neutrophils % 72.3 % (38.7-73.9); Platelet Count 209 T/CUMM (130-400); Red Blood Count 3.26 MC/CUMM (3.8-5.5); Red Cell Distribution Width 15.5 % (9.3-17.3); White Blood Count 5.8 T/CUMM (4-12)
[2022-04-07 05:15] LABS: INR 1.2; PT Patient Result 12.7 SECS (10.1-12.1)
[2022-04-07 05:27] LABS: Calcium 7.8 MG/DL (8.5-10.1); Osmolality,Calculated 273.8 MOS/KG (273-304); Potassium 3.3 MMOL/L (3.5-5.1)
[2022-04-07] MEDS: INSULIN LISPRO 100 UNIT/ML SUBCUT SCH ×4 (07:34→20:39)
[2022-04-07] MEDS ORDERED: POTASSIUM CHLORIDE 20 MEQ TABLET PO ONE (08:18)
[2022-04-07] MEDS: LOSARTAN 50 MG TABLET PO SCH (08:56)
[2022-04-07] MEDS: amLODIPine 10 MG TABLET PO SCH (08:56)
[2022-04-07] MEDS: cloNIDine 0.1 MG TABLET PO SCH ×2 (08:57→21:22)
[2022-04-07] MEDS: carvediloL 25 MG TABLET PO SCH ×2 (08:57→21:22)
[2022-04-07] MEDS: PANTOPRAZOLE 40 MG TABLET PO SCH (08:57)
[2022-04-07] MEDS: BUDESONIDE/FORMOTEROL 160-4.5 INHALER 6 GM INH SCH ×2 (08:58→21:23)
[2022-04-07] MEDS: BRIMONIDINE 0.15% OPH SOLN 1 DROP/DROPS BOTTLE LEFT EYE SCH ×4 (08:59→21:23)
[2022-04-07] MEDS: DORZOLAMIDE/TIMOLOL OPH SOLN 10 ML BOTTLE LEFT EYE SCH ×2 (08:59→21:23)
[2022-04-07] MEDS: prednisoLONE ACETATE 1% OPH SUSP 5 ML BOTTLE LEFT EYE SCH ×4 (08:59→21:23)
[2022-04-07] MEDS: OFLOXACIN 0.3% OPH SOLN 5 ML BOTTLE LEFT EYE SCH ×4 (08:59→21:23)
[2022-04-07] MEDS: ONDANSETRON 4 MG/2 ML VIAL IV PRN (09:03)
[2022-04-07 11:39] LABS: INR 1.3; PT Patient Result 13.6 SECS (10.1-12.1)
[2022-04-07] MEDS: oxyCODONE/ACETAMINOPHEN 5-325 MG TABLET PO PRN ×2 (12:00→21:22)
[2022-04-07] MEDS: WARFARIN 5 MG TABLET PO SCH (17:27)
[2022-04-07] MEDS: HEPARIN DRIP 25,000 UNITS/500 ML PREMIX IV SCH (17:34)
[2022-04-08] MEDS: oxyCODONE/ACETAMINOPHEN 5-325 MG TABLET PO PRN ×2 (03:11→08:33)
[2022-04-08 05:36] LABS: INR 1.4; PT Patient Result 14.9 SECS (10.1-12.1)
[2022-04-08] MEDS: HYDROmorphone 1 MG/1 ML SYRINGE IV PRN ×2 (06:00→12:01)
[2022-04-08 07:53] LABS: Basophils % 0.9 % (0.0-0.8); Eosinophils # 0.2 10*3/uL (0.0-0.87); Eosinophils % 4.4 % (0.00-10.9); Hematocrit 27.3 VOL% (35.7-47.0); Hemoglobin 9.2 GM/DL (12.0-16.0); Immature Granulocytes % 0.4 %; Immature Granulocytes Absolute 0.02 #; Lymphocytes # 0.9 10*3/uL (1.4-4.0); Lymphocytes % 20.3 % (21.3-54.2); Mean Corpuscular HGB Conc 33.7 GM/DL (32-36); Mean Corpuscular Volume 91.9 FL (87-102); Mean Platelet Volume 9.8 FL (9.6-12.0); Monocytes # 0.5 10*3/uL (0.11-0.8); Platelet Count 188 T/CUMM (130-400); Red Blood Count 2.97 MC/CUMM (3.8-5.5); Red Cell Distribution Width 15.5 % (9.3-17.3); White Blood Count 4.6 T/CUMM (4-12)
[2022-04-08 07:56] LABS: Calcium 7.6 MG/DL (8.5-10.1); Osmolality,Calculated 278.7 MOS/KG (273-304); Potassium 3.6 MMOL/L (3.5-5.1)
[2022-04-08] MEDS: INSULIN LISPRO 100 UNIT/ML SUBCUT SCH ×2 (08:01→11:48)
[2022-04-08] MEDS: BRIMONIDINE 0.15% OPH SOLN 1 DROP/DROPS BOTTLE LEFT EYE SCH ×2 (08:33→12:17)
[2022-04-08] MEDS: amLODIPine 10 MG TABLET PO SCH (08:33)
[2022-04-08] MEDS: OFLOXACIN 0.3% OPH SOLN 5 ML BOTTLE LEFT EYE SCH ×2 (08:33→12:17)
[2022-04-08] MEDS: prednisoLONE ACETATE 1% OPH SUSP 5 ML BOTTLE LEFT EYE SCH ×2 (08:33→12:17)
[2022-04-08] MEDS: LOSARTAN 50 MG TABLET PO SCH (08:33)
[2022-04-08] MEDS: DORZOLAMIDE/TIMOLOL OPH SOLN 10 ML BOTTLE LEFT EYE SCH (08:33)
[2022-04-08] MEDS: BUDESONIDE/FORMOTEROL 160-4.5 INHALER 6 GM INH SCH (08:33)
[2022-04-08] MEDS: cloNIDine 0.1 MG TABLET PO SCH (08:33)
[2022-04-08] MEDS: carvediloL 25 MG TABLET PO SCH (08:35)
[2022-04-08] MEDS ORDERED: APIXABAN 5 MG TABLET PO SCH (09:00)
[2022-04-08 12:00] VITALS: BP 147/66
== END 2022-04-08 16:23 | disposition home health service (06) | DRG 299 ==
LOC: N.ED 14:39 → N.5E 14:39 → SUATTDRO 18:50 → N.5E 21:10
PROVIDERS: ADMIT Internal Medicine; ATTEND Internal Medicine

== ENCOUNTER 2022-04-18 19:35 | Observation (INO) ==
[2022-04-18] MEDS ORDERED: ACETAMINOPHEN 325 MG TABLET PO PRN (21:08)
[2022-04-18] MEDS ORDERED: ONDANSETRON 4 MG/2 ML VIAL IV PRN (21:08)
[2022-04-18] MEDS ORDERED: hydrALAZINE 20 MG/1 ML VIAL IV PRN (21:08)
[2022-04-18] MEDS ORDERED: GLUCAGON 1 MG VIAL IM PRN (21:08)
[2022-04-18] MEDS ORDERED: DEXTROSE 10% 250 ML BAG IV PRN (21:16)
[2022-04-18 22:33] LABS: Basophils % 0.5 % (0.0-0.8); Eosinophils # 0.2 10*3/uL (0.0-0.87); Eosinophils % 2.8 % (0.00-10.9); Hematocrit 26.5 VOL% (35.7-47.0); Hemoglobin 8.6 GM/DL (12.0-16.0); Immature Granulocytes % 0.3 %; Immature Granulocytes Absolute 0.02 #; Lymphocytes # 1.2 10*3/uL (1.4-4.0); Lymphocytes % 15.9 % (21.3-54.2); Mean Corpuscular HGB Conc 32.5 GM/DL (32-36); Mean Corpuscular Volume 97.8 FL (87-102); Mean Platelet Volume 8.7 FL (9.6-12.0); Monocytes # 0.5 10*3/uL (0.11-0.8); Monocytes % 6.2 % (1.7-12.7); Neutrophils % 74.3 % (38.7-73.9); Platelet Count 181 T/CUMM (130-400); Red Blood Count 2.71 MC/CUMM (3.8-5.5); White Blood Count 7.4 T/CUMM (4-12)
[2022-04-18 22:57] LABS: Albumin 2.3 G/DL (3.4-5.0); Bilirubin,Total 0.7 MG/DL (0.20-1.00); Calcium 8.1 MG/DL (8.5-10.1); Osmolality,Calculated 285.3 MOS/KG (273-304); Potassium 4.1 MMOL/L (3.5-5.1); Total Protein 6.3 G/DL (6.4-8.2)
[2022-04-19] MEDS: MORPHINE 2 MG/1 ML SYRINGE IV PRN ×4 (01:03→19:19)
[2022-04-19 01:07] LABS: Basophils % 0.4 % (0.0-0.8); Eosinophils # 0.3 10*3/uL (0.0-0.87); Eosinophils % 3.7 % (0.00-10.9); Hematocrit 26.6 VOL% (35.7-47.0); Hemoglobin 8.8 GM/DL (12.0-16.0); Immature Granulocytes % 0.4 %; Immature Granulocytes Absolute 0.03 #; Lymphocytes # 1.2 10*3/uL (1.4-4.0); Lymphocytes % 16.2 % (21.3-54.2); Mean Corpuscular HGB Conc 33.1 GM/DL (32-36); Mean Platelet Volume 8.8 FL (9.6-12.0); Monocytes # 0.5 10*3/uL (0.11-0.8); Neutrophils % 72.3 % (38.7-73.9); Platelet Count 184 T/CUMM (130-400); Red Cell Distribution Width 14.9 % (9.3-17.3); White Blood Count 7.3 T/CUMM (4-12)
[2022-04-19 01:22] LABS: Calcium 8.4 MG/DL (8.5-10.1); Osmolality,Calculated 282.5 MOS/KG (273-304)
[2022-04-19] MEDS: oxyCODONE/ACETAMINOPHEN 5-325 MG TABLET PO PRN ×2 (04:09→18:00)
[2022-04-19] MEDS: LOSARTAN 50 MG TABLET PO SCH (08:53)
[2022-04-19] MEDS: carvediloL 25 MG TABLET PO SCH ×2 (08:53→16:03)
[2022-04-19] MEDS: BRIMONIDINE 0.15% OPH SOLN 1 DROP/DROPS BOTTLE LEFT EYE SCH ×4 (08:53→21:15)
[2022-04-19] MEDS: BUDESONIDE/FORMOTEROL 160-4.5 INHALER 6 GM INH SCH ×2 (08:53→21:15)
[2022-04-19] MEDS: PANTOPRAZOLE 40 MG TABLET PO SCH (08:53)
[2022-04-19] MEDS: INSULIN LISPRO 100 UNIT/ML SUBCUT SCH ×4 (09:02→21:28)
[2022-04-19] MEDS: cloNIDine 0.1 MG TABLET PO SCH ×2 (09:09→21:18)
[2022-04-19] MEDS: APIXABAN 5 MG TABLET PO SCH ×2 (09:09→21:18)
[2022-04-19] MEDS ORDERED: EPOETIN ALFA-EPBX 4,000 UNIT/ML VIAL IV PRN (14:01)
[2022-04-19] MEDS ORDERED: LATANOPROST 0.005% OPH SOLN 2.5 ML BOTTLE LEFT EYE SCH (21:00)
[2022-04-20] MEDS: MORPHINE 2 MG/1 ML SYRINGE IV PRN ×2 (00:53→06:04)
[2022-04-20] MEDS: oxyCODONE/ACETAMINOPHEN 5-325 MG TABLET PO PRN (03:46)
[2022-04-20] MEDS: cloNIDine 0.1 MG TABLET PO SCH (09:18)
[2022-04-20] MEDS: BUDESONIDE/FORMOTEROL 160-4.5 INHALER 6 GM INH SCH (09:19)
[2022-04-20] MEDS: carvediloL 25 MG TABLET PO SCH (09:19)
[2022-04-20] MEDS: PANTOPRAZOLE 40 MG TABLET PO SCH (09:19)
[2022-04-20] MEDS: APIXABAN 5 MG TABLET PO SCH (09:19)
[2022-04-20] MEDS: LOSARTAN 50 MG TABLET PO SCH (09:19)
[2022-04-20] MEDS: INSULIN LISPRO 100 UNIT/ML SUBCUT SCH ×2 (09:24→10:49)
[2022-04-20] MEDS: BRIMONIDINE 0.15% OPH SOLN 1 DROP/DROPS BOTTLE LEFT EYE SCH (10:49)
[2022-04-20 11:08] VITALS: BP 158/77
== END 2022-04-20 12:36 | disposition home or self-care (01) ==
LOC: EDBD → EDUNIT# → N.ED 19:35 → N.EDINP 19:35 → SUATTDRO 21:08 → N.3E 21:46
PROVIDERS: ADMIT Family Medicine; ATTEND Internal Medicine